=== PATIENT | male | born 1960 ===

== ENCOUNTER 2024-06-17 05:29 | Day surgery (SDC) | payer BC ==
[2024-06-17] MEDS: Dextrose 5%-0.45% NaCl 1,000 ML IV SCH (06:00)
[2024-06-17] MEDS ORDERED: fentaNYL 100 MCG/2 ML SDV IV ONE (06:11)
[2024-06-17] MEDS ORDERED: fentaNYL 100 MCG/2 ML SDV ONE (06:11)
[2024-06-17] MEDS ORDERED: Midazolam 1 MG/ML 2 ML SDV ONE (06:11)
[2024-06-17] MEDS ORDERED: Midazolam 1 MG/ML 2 ML SDV IV ONE (06:11)
[2024-06-17] MEDS: Midazolam 1 MG/ML 2 ML SDV IV ONE ×5 (06:27→06:38)
[2024-06-17] MEDS: fentaNYL 100 MCG/2 ML SDV IV ONE ×2 (06:27)
== END 2024-06-17 08:25 | disposition home or self-care (01) ==
LOC: DL.ENDO 05:29
PROVIDERS: ATTEND Internal Medicine Gastroenterology
DX: Z12.11 Encounter for screening for malignant neoplasm of colon (principal); D12.0 Benign neoplasm of cecum; K64.8 Other hemorrhoids; K57.30 Diverticulosis of large intestine without perforation or abscess without bleeding; K55.20 Angiodysplasia of colon without hemorrhage; Z88.0 Allergy status to penicillin
CPT/HCPCS: J2250; J3010; J7799